=== PATIENT | female | born 1985 | race Caucasian/White ===

== ENCOUNTER 2018-08-18 05:45 | Day surgery (SDC) | payer OTHER ==
[2018-08-18] MEDS ORDERED: DOXYCYCLINE HY100 M3 PO (10:24)
[2018-08-18] MEDS ORDERED: Tylenol #3 PO (10:24)
== END 2018-08-18 14:20 | disposition home or self-care (01) ==
LOC: CIR.AMB 05:45
DX: N84.0 Polyp of corpus uteri (principal); D25.0 Submucous leiomyoma of uterus

== ENCOUNTER 2021-01-07 08:58 | Outpatient (CLI) | payer OTHER ==
[~2021-01-07 08:58] MED LIST: DOXYCYCLINE HY100 M3 PO; Tylenol #3 PO
== END 2021-01-07 10:30 | disposition home or self-care (01) ==
LOC: PRENATAL 08:58
PROVIDERS: ATTEND Obstetrics & Gynecology Maternal & Fetal Medicine
DX: O35.0XX1 Maternal care for (suspected) central nervous system malformation in fetus, fetus 1 (principal); O35.3XX1 Maternal care for (suspected) damage to fetus from viral disease in mother, fetus 1; O98.512 Other viral diseases complicating pregnancy, second trimester; O28.1 Abnormal biochemical finding on antenatal screening of mother; O09.512 Supervision of elderly primigravida, second trimester; Z36.89 Encounter for other specified antenatal screening; Z3A.20 20 weeks gestation of pregnancy

== ENCOUNTER 2021-04-11 13:29 | Outpatient (CLI) | payer OTHER | END 2021-04-11 14:27 | disposition home or self-care (01) | LOC: PRENATAL 13:29 | PROVIDERS: ATTEND Obstetrics & Gynecology Maternal & Fetal Medicine | DX: O26.843 Uterine size-date discrepancy, third trimester (principal); O28.1 Abnormal biochemical finding on antenatal screening of mother; O09.513 Supervision of elderly primigravida, third trimester; Z36.89 Encounter for other specified antenatal screening; Z3A.33 33 weeks gestation of pregnancy ==